=== PATIENT | female | born 1980 | race American Indian/Alaskan Native ===

== ENCOUNTER 2020-10-02 02:42 | Emergency (ER) | payer SELFPAY ==
[2020-10-02 04:25] LABS: Basophils # (Auto) 0.1 K/mm3 (0.0-0.1); Basophils % (Auto) 1.9 % (0.0-1.8); Eosinophils # (Auto) 0.2 K/mm3 (0.0-0.4); Eosinophils % (Auto) 3.3 % (0.0-4.3); Hematocrit 33.8 % (30.3-42.9); Hemoglobin 10.9 gm/dl (10.1-14.3); Lymphocytes # (Auto) 1.5 K/mm3 (1.2-5.4); Lymphocytes % (Auto) 26.8 % (13.4-35.0); Mean Corpuscular HGB Conc 32 % (30-34); Mean Corpuscular Volume 83 fl (79-97); Monocytes # (Auto) 0.5 K/mm3 (0.0-0.8); Platelet Count 298 K/mm3 (140-440); Red Blood Count 4.06 M/mm3 (3.65-5.03); Red Cell Distribution Width 16.8 % (13.2-15.2)
[2020-10-02 04:44] LABS: BUN/Creatinine Ratio 10; Blood Urea Nitrogen 8 mg/dL (7-17); Calcium 9.3 mg/dL (8.4-10.2); Hemolysis Index 2
--- NOTE | 2020-10-02 07:52 | Emergency Department Report ---
<LACHELLE MILLIGAN - Last Filed: 10/02/20 10:26> ED Female HPI - General Chief complaint: Abdominal Pain Stated complaint: ABD PAIN,BLEEDING Time Seen by Provider: 10/02/20 07:48 Source: patient Mode of arrival: Ambulatory Limitations: No Limitations - History of Present Illness Initial comments: 40-year-old -Cypriot female presents to the emergency room reporting that she started having pink discharge that started in September 17, 2019. Patient states that she did not start having left side pain when she has intercourse today she states that she had pressed on her left side of her abdomen and bright red blood came out of her vaginal area. Patient states then she became dizzy. Patient states 2 days prior to this she was having copious amount of white mucus with blood tinge that gush of from her vaginal area when she was standing. Patient states that she is gone through 1 pad pad today but is not full. Patti ibarra has a history of fibroid tumors removed in 2019. Patient is 0. Her last known menstrual period was August 30, 2020. She states she has an appointment for October 08, 2020 at [facility]. Complaint: vaginal bleeding, pelvic pain Location: suprapubic, LLQ Severity: moderate Quality: cramping Consistency: intermittent Improves with: none Worsens with: intercourse Are you Now?: No Last Menstrual Period: 08/30/20 EDC: 06/06/21 Associated Symptoms: vaginal discharge, vaginal bleeding, abdominal pain. denies: nausea/vomiting, fever/chills, headaches, loss of appetite, dysuria, hematuria, rash, seizure, shortness of breath, syncope, weakness, other - Related Data Sexually active: Yes : 0 Allergies Allergy/AdvReac Type Severity Reaction Status Date / Time acetaminophen Allergy Anaphylaxis Verified 10/02/20 03:53 [From Tylenol Sinus Severe Congest] erythromycin base Allergy Hives Verified 10/02/20 03:52 [From Erythrocin] guaifenesin Allergy Anaphylaxis Verified 10/02/20 03:53 [From Tylenol Sinus Severe Congest] pseudoephedrine Allergy Anaphylaxis Verified 10/02/20 03:53 [From Tylenol Sinus Severe Congest] ED Review of Systems Comment: All other systems reviewed and negative ED Past Medical Hx - Past Medical History Previous Medical History?: No - Surgical History Past Surgical History?: No - Social History Smoking Status: Never Smoker ED Physical Exam - General Limitations: No Limitations General appearance: alert, in no apparent distress - Head Head exam: Present: atraumatic, normocephalic - Eye Eye exam: Present: normal appearance - ENT ENT exam: Present: mucous membranes moist - Neck Neck exam: Present: normal inspection - Respiratory Respiratory exam: Present: normal lung sounds bilaterally. Absent: respiratory distress, accessory muscle use - Cardiovascular Cardiovascular Exam: Present: regular rate, normal rhythm. Absent: systolic murmur, diastolic murmur, rubs, gallop - GI/Abdominal GI/Abdominal exam: Present: soft, tenderness (Left lower quadrant mild), normal bowel sounds. Absent: distended - Extremities Exam Extremities exam: Present: normal inspection - Back Exam Back exam: Present: normal inspection - Neurological Exam Neurological exam: Present: alert, oriented X3, normal gait - Psychiatric Psychiatric exam: Present: normal affect, normal mood - Skin Skin exam: Present: warm, dry, intact, normal color. Absent: rash ED Medical Decision Making - Lab Data Result diagrams: 10/02/20 03:54 10/02/20 03:54 - Radiology Data Radiology results: report reviewed Institution [facility] Approval Date 2020-10-02 09:53:05 Other Patient ID My Comment(s) Study Comments [facility] [address] [place] [address] Ultrasound Report Signed Patient: LETTY BURGOS MR#: [id number] : 1980 Acct:[id number] Age/Sex: 40 / F ADM Date: 10/02/20 Loc: ED Attending Dr: Ordering Physician: MAXIM AMIN Date of Service: 10/02/20 Procedure(s): US pelvic complete Accession Number(s): [id number] cc: MAXIM AMIN ULTRASOUND PELVIS COMPLETE INDICATION / CLINICAL INFORMATION: Pelvic pain on the left side. TECHNIQUE: Transabdominal. Duplex Color Doppler used: Yes. COMPARISON: None available FINDINGS: UTERUS: Present. - Appearance (if present): No significant abnormality. - Size in cm (if present): 7.1 x 3.4 x 4.6. - Endometrial Complex (if present): No significant abnormality.. Thickness in cm (if measured) = 0.9 - Mass lesions: None. - Additional findings: None. RIGHT ADNEXA: No significant ovarian cyst or mass. Normal color Doppler blood flow. The right ovary measures 2.1 x 3.0 x 2.8 cm. LEFT ADNEXA: A 2.7 cm simple appearing left ovarian cyst is identified. Normal color Doppler blood flow. Left ovary measures 4.3 x 3.2 x 4.3 cm. URINARY BLADDER: No significant abnormality. FREE FLUID: None. ADDITIONAL FINDINGS: None. IMPRESSION: 2.7 cm left ovarian cyst. Signer Name: Wallace Mccollum Jr, MD Signed: 10/02/2020 9:46 AM Workstation Name: [id number] Transcribed By: TTR Dictated By: WALLACE MCCOLLUM JR, MD Electronically Authenticated By: WALLACE MCCOLLUM JR, MD Signed Date/Time: 10/02/20945 DD/ 4 TD/TT: - Medical Decision Making 40-year-old -Cyp[place] female presents to the emergency room reporting that she started having pink discharge that started in September 17, 2019. Patient states that she did not start having left side pain when she has intercourse today she states that she had pressed on her left side of her abdomen and bright red blood came out of her vaginal area. Patient states then she became dizzy. Patient states 2 days prior to this she was having copious amount of white mucus with blood tinge that gush of from her vaginal area when she was standing. Patient states that she is gone through 1 pad pad today but is not full. Patient has a history of fibroid tumors removed in 2019. Patient is 0. Her last known menstrual period was August 30, 2020. She states she has an appointment for October 08, 2020 at a [facility] clinic. CBC and CMP are nonactionable. Negative test. Urinalysis is pending. Ultrasound pelvic complete has been ordered. Ultrasound shows you have a left ovarian. No other abnormalities. Cyst that is about 2.7 cm discussed with patient she can take ibuprofen or Tylenol for pain management. Discussed with patient she should follow-up with the [facility] in the next 3 to 5 days if she has any further concerns. Also discussed with patient this is most likely her menstrual cycle. As well as trauma to her left ovary from intercourse. Patient reports that she usually sleeps with women but now she is sleeping with a man that as she has a curvature penis that tends to hit on that left side. Patient verbalized understanding ED Disposition Clinical Impression: Pelvic pain Disposition: DC-01 TO HOME OR SELFCARE Is pt being admited?: No Does the pt Need Aspirin: No Condition: Good Instructions: Pelvic Pain, Female, [id number], Abdominal Pain (ED) Additional Instructions: Ultrasound shows you have a left ovarian. No other abnormalities. Cyst that is about 2.7 cm. Urinalysis is not concerning for any urinary tract infection test is negative. Follow-up with your [facility]. Tylenol or ibuprofen as needed for pain management. Referrals: PRIMARY CARE, [Primary Care Provider] - 3-5 Days [facility] [Provider Group] - 3-5 Days Forms: Work/School Release Form(ED) <TETE WILKINSON - Last Filed: 10/02/20 13:54> ED Review of Systems ROS: Stated complaint: ABD PAIN,BLEEDING Other details as noted in HPI ED Course Vital Signs 10/02/20 10/02/20 03:30 10:39 Temperature 98.7 F 98.6 F Pulse Rate 59 L 62 Respiratory 18 16 Rate Blood Pressure 123/47 Blood Pressure 121/43 [Right] O2 Sat by Pulse 100 99 Oximetry ED Medical Decision Making - Lab Data Result diagrams: 10/02/20 03:54 10/02/20 03:54 Critical care attestation.: If time is entered above; I have spent that time in minutes in the direct care of this critically ill patient, excluding procedure time. ED Disposition Is pt being admited?: No Does the pt Need Aspirin: No
[2020-10-02 08:01] LABS: Bilirubin,Urine NEG (Negative); Blood,Urine LG (Negative); Color,Urine Red (Yellow); Urobilinogen,Urine < 2.0 mg/dL (<2.0)
[2020-10-02 08:16] LABS: RBC,Urine > 182.0 /HPF (0.0-6.0); WBC,Urine < 1.0 /HPF (0.0-6.0)
--- NOTE | 2020-10-02 09:51 | Ultrasound Report ---
ULTRASOUND PELVIS COMPLETE INDICATION / CLINICAL INFORMATION: Pelvic pain on the left side. TECHNIQUE: Transabdominal. Duplex Color Doppler used: Yes. COMPARISON: None available FINDINGS: UTERUS: Present. - Appearance (if present): No significant abnormality. - Size in cm (if present): 7.1 x 3.4 x 4.6. - Endometrial Complex (if present): No significant abnormality.. Thickness in cm (if measured) = 0.9 - Mass lesions: None. - Additional findings: None. RIGHT ADNEXA: No significant ovarian cyst or mass. Normal color Doppler blood flow. The right ovary m easures 2.1 x 3.0 x 2.8 cm. LEFT ADNEXA: A 2.7 cm simple appearing left ovarian cyst is identified. Normal color Doppler blood fl ow. Left ovary measures 4.3 x 3.2 x 4.3 cm. URINARY BLADDER: No significant abnormality. FREE FLUID: None. ADDITIONAL FINDINGS: None. IMPRESSION: 2.7 cm left ovarian cyst. Signer Name: Wallace Mccollum Jr, MD Signed: 10/02/2020 9:46 AM Workstation Name: [id number]
[2020-10-02 10:41] VITALS: BP 121/43
== END 2020-10-02 10:40 | disposition home or self-care (01) ==
LOC: ED 02:42
DX: R10.2 Pelvic and perineal pain (principal); R10.32 Left lower quadrant pain; R42 Dizziness and giddiness; N89.8 Other specified noninflammatory disorders of vagina; Z88.1 Allergy status to other antibiotic agents; Z88.6 Allergy status to analgesic agent; Z88.8 Allergy status to other drugs, medicaments and biological substances
CPT/HCPCS: 36415; 76856; 80048; 81001; 84702; 85025; 99283